=== PATIENT | male | born 1960 | race Caucasian/White ===

== ENCOUNTER 2025-05-18 10:14 | Outpatient (CLI) | payer OTHER | END 2025-05-18 10:15 | disposition home or self-care (01) | LOC: CSHMRI 10:14 | PROVIDERS: ATTEND Family Medicine | DX: M23.52 Chronic instability of knee, left knee (principal); S83.282A Other tear of lateral meniscus, current injury, left knee, initial encounter; M94.8X6 Other specified disorders of cartilage, lower leg ==